=== PATIENT | female | born 1955 | race Asian ===

== ENCOUNTER 2017-02-09 08:45 | Outpatient (CLI) | payer OTHER | END 2017-02-10 00:39 | disposition home or self-care (01) | LOC: INF 08:45 | DX: L02.412 Cutaneous abscess of left axilla (principal) | CPT/HCPCS: 96365; 96366; J0712 ==

== ENCOUNTER 2017-02-10 11:09 | Outpatient (CLI) | payer OTHER ==
[~2017-02-10] VITALS: Ht 30.5 cm; Wt 0.5 kg
== END 2017-02-10 18:59 | disposition home or self-care (01) ==
LOC: INF 11:09
DX: L02.412 Cutaneous abscess of left axilla (principal)
CPT/HCPCS: 96365; 96366; J0712

== ENCOUNTER 2017-02-13 09:22 | Outpatient (CLI) | payer OTHER ==
[~2017-02-13] VITALS: Ht 167.6 cm; Wt 113.4 kg
[2017-02-13 09:35] VITALS: BP 144/98; TEMP 98.4
[2017-02-13 11:18] VITALS: BP 147/91; TEMP 98.4
== END 2017-02-13 19:11 | disposition home or self-care (01) ==
LOC: INF 09:22
DX: L02.412 Cutaneous abscess of left axilla (principal)
CPT/HCPCS: 96365; 96366; J0712

== ENCOUNTER 2017-02-14 09:52 | Outpatient (CLI) | payer OTHER ==
[~2017-02-14] VITALS: Ht 30.5 cm; Wt 0.5 kg
[2017-02-14 09:55] VITALS: BP 122/69; TEMP 98.5
[2017-02-14 11:35] VITALS: BP 145/83; TEMP 98.5
== END 2017-02-14 22:30 | disposition home or self-care (01) ==
LOC: INF 09:52
DX: L02.412 Cutaneous abscess of left axilla (principal)
CPT/HCPCS: 96365; 96366; J0712

== ENCOUNTER 2017-02-15 09:20 | Outpatient (CLI) | payer OTHER ==
[2017-02-15 09:40] VITALS: BP 121/67; TEMP 98.4
== END 2017-02-15 19:45 | disposition home or self-care (01) ==
LOC: INF 09:20
DX: L02.412 Cutaneous abscess of left axilla (principal)
CPT/HCPCS: 96365; 96366; J0712

== ENCOUNTER 2017-02-16 10:44 | Outpatient (CLI) | payer OTHER | END 2017-02-16 22:42 | disposition home or self-care (01) | LOC: INF 10:44 | DX: L02.412 Cutaneous abscess of left axilla (principal) | CPT/HCPCS: 96365; J0712 ==

== ENCOUNTER 2017-07-23 07:41 | Emergency (ER) | payer OTHER ==
[~2017-07-23] VITALS: Ht 167.6 cm; Wt 115.2 kg
[2017-07-23 08:11] VITALS: BP 145/89; TEMP 98
== END 2017-07-23 08:15 | disposition home or self-care (01) ==
LOC: ED 07:41
DX: M54.9 Dorsalgia, unspecified (principal); I10 Essential (primary) hypertension
CPT/HCPCS: 99281

== ENCOUNTER 2017-08-07 01:01 | Emergency (ER) | payer OTHER ==
[~2017-08-07] VITALS: Ht 167.6 cm; Wt 115.2 kg
[2017-08-07 01:39] LABS: PLATELET COUNT 161 K/uL (152-353)
[2017-08-07 02:00] LABS: PARTIAL THROMBOPLASTIN TIME 23.2 SECONDS (24.5-33.6)
[2017-08-07 02:16] LABS: POTASSIUM 3.8 mmol/L (3.6-5.2)
[2017-08-07 03:19] VITALS: BP 135/87; TEMP 98.7
== END 2017-08-07 03:27 | disposition home or self-care (01) ==
LOC: ED 01:01
DX: K29.00 Acute gastritis without bleeding (principal); B96.81 Helicobacter pylori [H. pylori] as the cause of diseases classified elsewhere; R07.89 Other chest pain; R00.0 Tachycardia, unspecified
CPT/HCPCS: 36415; 80053; 82550; 84484; 85027; 85610; 85730; 86318; 93005; 96360; 96361; 99284

== ENCOUNTER 2017-09-04 21:27 | Observation (INO) | payer OTHER ==
[~2017-09-04] VITALS: Ht 167.6 cm; Wt 117.2 kg
[2017-09-04 21:54] VITALS: BP 141/91; TEMP 103
[2017-09-04 22:37] LABS: PLATELET COUNT 167 K/uL (152-353)
[2017-09-04 22:43] LABS: POTASSIUM 4.1 mmol/L (3.6-5.2)
[2017-09-04 23:02] LABS: PARTIAL THROMBOPLASTIN TIME 22.1 SECONDS (24.5-33.6)
[2017-09-05 00:53] VITALS: BP 115/63; TEMP 98.4; Ht 167.6 cm; Wt 117.2 kg
[2017-09-05 04:00] VITALS: BP 122/71; TEMP 100.4
[2017-09-05 05:24] LABS: POTASSIUM 4.3 mmol/L (3.6-5.2)
[2017-09-05 05:31] LABS: PLATELET COUNT 147 K/uL (152-353)
[2017-09-05 08:00] VITALS: BP 140/82; TEMP 103
[2017-09-05 12:00] VITALS: BP 110/78; TEMP 98.8
== END 2017-09-05 15:40 | disposition home or self-care (01) ==
LOC: ED 21:27 → MED/SURG 23:35
PROVIDERS: Family Medicine; ADMIT Emergency Medicine
DX: J02.0 Streptococcal pharyngitis (principal); F71 Moderate intellectual disabilities; R11.2 Nausea with vomiting, unspecified; R50.9 Fever, unspecified; I10 Essential (primary) hypertension; I25.2 Old myocardial infarction; J44.9 Chronic obstructive pulmonary disease, unspecified; R00.0 Tachycardia, unspecified
CPT/HCPCS: 36415; 80053; 83605; 84484; 85027; 85610; 85730; 87040; 87804; 87880; 93005; 96360; 96365; 96366; 96367; 96374; 96375; 99220; 99284; G0378; J0456; J0696; J1650; J1885; J2270; J2405; J3490

== ENCOUNTER 2017-09-06 00:15 | Emergency (ER) | payer OTHER ==
[~2017-09-06] VITALS: Ht 167.6 cm; Wt 115.7 kg
[2017-09-06 01:10] LABS: PLATELET COUNT 140 K/uL (152-353)
[2017-09-06 01:20] LABS: POTASSIUM 3.7 mmol/L (3.6-5.2)
[2017-09-06 03:59] VITALS: BP 136/83; TEMP 101.1
== END 2017-09-06 04:02 | disposition short-term general hospital (02) ==
LOC: ED 00:15
DX: R07.89 Other chest pain (principal); R68.89 Other general symptoms and signs; I20.0 Unstable angina; R00.0 Tachycardia, unspecified
CPT/HCPCS: 80053; 82550; 84484; 85027; 93005; 96365; 96375; 99284; J3490

== ENCOUNTER 2018-11-12 21:05 | Observation (INO) | payer OTHER ==
[~2018-11-12] VITALS: Ht 167.6 cm; Wt 106.4 kg
[2018-11-12 21:35] VITALS: BP 145/89; TEMP 100
[2018-11-12 21:54] LABS: PLATELET COUNT 140 K/uL (152-353)
[2018-11-12 22:13] LABS: SODIUM 138 mmol/L (136-145)
[2018-11-13] VITALS (7 sets, daily range): BP systolic 117–163; BP diastolic 74–99; TEMP 98.6–100.6; Ht 167.6 cm; Wt 106.4 kg
[2018-11-14] VITALS: BP 142/90; TEMP 98.2
[2018-11-14 04:05] VITALS: BP 134/83; TEMP 98.8
[2018-11-14 08:23] VITALS: BP 151/79; TEMP 98.2
[2018-11-14] MEDS ORDERED: CARV6.25 PO (09:54)
[2018-11-14] MEDS ORDERED: LIPITOR40 MG PO (09:54)
[2018-11-14] MEDS ORDERED: SPIRONOLACT25 MG PO (09:55)
[2018-11-14] MEDS ORDERED: LISI10TA11 PO (09:55)
[2018-11-14 12:24] VITALS: BP 151/96; TEMP 98
[2018-11-14 15:26] LABS: PLATELET COUNT 122 K/uL (152-353)
[2018-11-14 15:36] LABS: POTASSIUM 3.7 mmol/L (3.6-5.2)
[2018-11-14 16:05] VITALS: BP 137/86; TEMP 98.8
== END 2018-11-14 17:50 | disposition short-term general hospital (02) ==
LOC: ED 21:05 → MED/SURG 23:20
PROVIDERS: Family Medicine; ADMIT Emergency Medicine
DX: I63.412 Cerebral infarction due to embolism of left middle cerebral artery (principal); R41.82 Altered mental status, unspecified; R42 Dizziness and giddiness; J44.9 Chronic obstructive pulmonary disease, unspecified; I10 Essential (primary) hypertension; I25.2 Old myocardial infarction; G62.89 Other specified polyneuropathies; E78.49 Other hyperlipidemia
CPT/HCPCS: 36415; 80053; 80307; 80320; 81000; 82550; 82553; 84484; 85027; 93005; 96365; 96366; 96372; 99220; 99284; G0378; J0696; J1650; J2060

== ENCOUNTER 2018-11-14 17:54 | Outpatient (CLI) | payer OTHER ==
[~2018-11-14 17:54] MED LIST: CARV6.25 PO; LIPITOR40 MG PO; LISI10TA11 PO; SPIRONOLACT25 MG PO
== END 2018-11-14 19:53 | disposition short-term general hospital (02) ==
LOC: AMB 17:54
DX: I63.412 Cerebral infarction due to embolism of left middle cerebral artery (principal); R41.82 Altered mental status, unspecified; R42 Dizziness and giddiness; J44.9 Chronic obstructive pulmonary disease, unspecified; I10 Essential (primary) hypertension; I25.2 Old myocardial infarction; G62.89 Other specified polyneuropathies; E78.49 Other hyperlipidemia
CPT/HCPCS: A0425; A0427

== ENCOUNTER 2019-06-29 09:14 | Inpatient (IN) | payer OTHER ==
[2019-06-29] VITALS (7 sets, daily range): BP systolic 127–219; BP diastolic 79–128; TEMP 97.7–98.7; Ht 167.6 cm; Wt 117.1 kg
[~2019-06-29] VITALS: Ht 167.6 cm; Wt 117.1 kg
[~2019-06-29 09:14] MED LIST changes: +NITR0.4D6 TD
[2019-06-29] MEDS ORDERED: ELIQUIS5 MG PO (09:40)
[2019-06-29] MEDS ORDERED: SPIRONOLACT25 MG PO (09:42)
[2019-06-29] MEDS ORDERED: ENTRESTO 24-261 TAB PO (09:44)
[2019-06-29 09:50] LABS: PLATELET COUNT 163 K/uL (152-353)
[2019-06-29 09:57] LABS: POTASSIUM 4.2 mmol/L (3.6-5.2); SODIUM 140 mmol/L (136-145)
[2019-06-30] VITALS (23 sets, daily range): BP systolic 127–165; BP diastolic 54–106; TEMP 97.6–99.3
[2019-06-30 05:13] LABS: PLATELET COUNT 152 K/uL (152-353)
[2019-06-30 05:29] LABS: POTASSIUM 3.8 mmol/L (3.6-5.2)
[2019-06-30 20:37] LABS: PLATELET COUNT 144 K/uL (152-353)
[2019-06-30 20:53] LABS: PARTIAL THROMBOPLASTIN TIME 23.7 SECONDS (24.5-33.6)
[2019-07-01] VITALS (37 sets, daily range): BP systolic 98–154; BP diastolic 53–94; TEMP 97.6–99.3
[2019-07-02] VITALS: BP 123/81; TEMP 98.3
[2019-07-02 04:00] VITALS: BP 148/58; TEMP 98.4
[2019-07-02 08:00] VITALS: BP 140/79; TEMP 98.2
[2019-07-02 12:00] VITALS: BP 152/91; TEMP 97.9
== END 2019-07-02 16:07 | disposition home or self-care (01) | DRG 291 ==
LOC: ED 09:14 → MED/SURG 10:40 → ICU 06-30 19:15 → MED/SURG 06-30 19:15 → ICU 06-30 19:15 → MED/SURG 07-01 15:02
PROVIDERS: Internal Medicine; ADMIT Student in an Organized Health Care Education/Training Program
DX: I50.43 Acute on chronic combined systolic (congestive) and diastolic (congestive) heart failure (principal); J18.8 Other pneumonia, unspecified organism; I42.8 Other cardiomyopathies; R07.89 Other chest pain; I25.10 Atherosclerotic heart disease of native coronary artery without angina pectoris; I25.2 Old myocardial infarction; Z91.14 Patient's other noncompliance with medication regimen; Z91.19 Patient's noncompliance with other medical treatment and regimen; M25.512 Pain in left shoulder; I11.0 Hypertensive heart disease with heart failure
CPT/HCPCS: 36415; 80048; 82550; 82948; 83735; 83880; 84484; 85027; 85379; 85610; 85730; 87040; 87077; 87185; 87205; 93005; 93306; 94640; 94664; 94760; 96365; 96366; 96372; 96374; 96375; 99284; J0456; J0696; J1644; J1650; J1940; J1956; J2270

== ENCOUNTER 2019-07-08 07:42 | Emergency (ER) | payer OTHER ==
[~2019-07-08] VITALS: Ht 167.6 cm; Wt 109.8 kg
[~2019-07-08 07:42] MED LIST changes: +ELIQUIS5 MG PO; +ENTRESTO 24-261 TAB PO
[2019-07-08 07:47] VITALS: TEMP 97.7
[2019-07-08 08:52] VITALS: BP 170/91
== END 2019-07-08 08:52 | disposition home or self-care (01) ==
LOC: ED 07:42
DX: M75.102 Unspecified rotator cuff tear or rupture of left shoulder, not specified as traumatic (principal)
CPT/HCPCS: 96372; 99283; J1885

== ENCOUNTER 2019-07-11 23:07 | Outpatient (CLI) | payer OTHER ==
[2019-07-12] MEDS ORDERED: LIPITOR40 MG PO (01:51)
[2019-07-12] MEDS ORDERED: LISI10TA11 PO (01:54)
== END 2019-07-11 23:09 | disposition short-term general hospital (02) ==
LOC: AMB 23:07
DX: M25.512 Pain in left shoulder (principal); R06.02 Shortness of breath
CPT/HCPCS: A0425; A0427

== ENCOUNTER 2019-07-11 23:17 | Inpatient (IN) | payer OTHER ==
[~2019-07-11] VITALS: Ht 167.6 cm; Wt 118.6 kg
[2019-07-11 23:21] VITALS: BP 171/98; TEMP 97.5
[2019-07-11 23:40] VITALS: BP 166/107
[2019-07-11 23:47] LABS: PLATELET COUNT 116 K/uL (152-353)
[2019-07-12] VITALS (7 sets, daily range): BP systolic 117–147; BP diastolic 4–86; TEMP 97.6–98.4; Ht 167.6 cm; Wt 118.6 kg
[2019-07-12 00:04] LABS: SODIUM 137 mmol/L (136-145)
[2019-07-12 00:07] LABS: PARTIAL THROMBOPLASTIN TIME 23.9 SECONDS (24.5-33.6)
[2019-07-12] MEDS ORDERED: LIPITOR40 MG PO (01:51)
[2019-07-12] MEDS ORDERED: LISI10TA11 PO (01:54)
[2019-07-13] VITALS (7 sets, daily range): BP systolic 152–180; BP diastolic 85–103; TEMP 97.9–98.7
[2019-07-14 04:00] VITALS: BP 127/66; TEMP 98.4
[2019-07-14 08:00] VITALS: BP 133/83; TEMP 98.3
[2019-07-14 08:08] LABS: PLATELET COUNT 153 K/uL (152-353)
[2019-07-14 08:18] LABS: POTASSIUM 3.9 mmol/L (3.6-5.2)
[2019-07-14 12:00] VITALS: BP 134/78; TEMP 97.8
[2019-07-14 16:00] VITALS: BP 144/88; TEMP 98.4
[2019-07-14] MEDS ORDERED: GLIP10TA55 PO (18:59)
[2019-07-14 20:00] VITALS: BP 158/78; TEMP 98.7
== END 2019-07-14 20:20 | disposition home or self-care (01) | DRG 293 ==
LOC: ED 23:17 → MED/SURG 07-12 00:25
PROVIDERS: Emergency Medicine; ADMIT Family Medicine
DX: I11.0 Hypertensive heart disease with heart failure (principal); I50.43 Acute on chronic combined systolic (congestive) and diastolic (congestive) heart failure; I25.10 Atherosclerotic heart disease of native coronary artery without angina pectoris; I25.2 Old myocardial infarction; J44.9 Chronic obstructive pulmonary disease, unspecified; E11.42 Type 2 diabetes mellitus with diabetic polyneuropathy
CPT/HCPCS: 36415; 80053; 82550; 83036; 83690; 83735; 83880; 84100; 84484; 85027; 85610; 85730; 93005; 94760; 96374; 99284; J1815; J1940

== ENCOUNTER 2019-07-18 22:56 | Emergency (ER) | payer OTHER ==
[~2019-07-18] VITALS: Ht 167.6 cm; Wt 118.4 kg
[~2019-07-18 22:56] MED LIST changes: +GLIP10TA55 PO
[2019-07-19 01:22] VITALS: BP 181/105; TEMP 97.5
== END 2019-07-19 01:24 | disposition home or self-care (01) ==
LOC: ED 22:56
DX: M25.512 Pain in left shoulder (principal)
CPT/HCPCS: 36415; 82550; 82553; 84484; 93005; 96372; 99283; J1885

== ENCOUNTER 2019-07-19 23:41 | Emergency (ER) | payer OTHER ==
[~2019-07-19] VITALS: Ht 167.6 cm; Wt 109.8 kg
[2019-07-20 00:42] LABS: PLATELET COUNT 162 K/uL (152-353)
[2019-07-20 01:10] LABS: POTASSIUM 3.8 mmol/L (3.6-5.2); SODIUM 139 mmol/L (136-145)
[2019-07-20 06:30] VITALS: TEMP 97.4
[2019-07-20 07:40] VITALS: BP 167/98
== END 2019-07-20 07:40 | disposition short-term general hospital (02) ==
LOC: ED 23:41
PROVIDERS: Hospitalist
DX: R07.89 Other chest pain (principal); I50.9 Heart failure, unspecified; I10 Essential (primary) hypertension; R00.0 Tachycardia, unspecified
CPT/HCPCS: 80053; 81000; 82150; 82550; 83690; 83880; 84484; 85027; 85610; 85730; 93005; 96372; 96374; 96375; 99284; J1650; J1940; J2270; J2405; J3490

== ENCOUNTER 2019-11-10 22:32 | Emergency (ER) | payer OTHER ==
[~2019-11-10] VITALS: Ht 167.6 cm; Wt 109.8 kg
[2019-11-10] MEDS ORDERED: ASPIRIN 81 LOW81 MG PO (22:50)
[2019-11-10] MEDS ORDERED: ENTRESTO 49-511 TAB PO (22:50)
[2019-11-10] MEDS ORDERED: CARV6.25 PO (22:50)
[2019-11-10 23:25] LABS: PLATELET COUNT 148 K/uL (152-353)
[2019-11-11 00:27] LABS: POTASSIUM 4.1 mmol/L (3.6-5.2); SODIUM 137 mmol/L (136-145)
[2019-11-11 01:45] VITALS: BP 176/91; TEMP 97.7
== END 2019-11-11 01:45 | disposition home or self-care (01) ==
LOC: ED 22:32
PROVIDERS: Emergency Medicine
DX: E86.0 Dehydration (principal); J18.8 Other pneumonia, unspecified organism; E11.65 Type 2 diabetes mellitus with hyperglycemia
CPT/HCPCS: 36415; 80053; 82550; 83735; 83880; 84484; 85027; 93005; 96372; 99283; J0696; J1815

== ENCOUNTER 2019-12-01 02:32 | Outpatient (CLI) | payer OTHER ==
[~2019-12-01 02:32] MED LIST changes: +ASPIRIN 81 LOW81 MG PO; +ENTRESTO 49-511 TAB PO
== END 2019-12-01 02:34 | disposition short-term general hospital (02) ==
LOC: AMB 02:32
DX: R07.89 Other chest pain (principal); R06.02 Shortness of breath
CPT/HCPCS: A0425; A0427

== ENCOUNTER 2019-12-01 02:35 | Emergency (ER) | payer OTHER ==
[~2019-12-01] VITALS: Ht 167.6 cm; Wt 120.2 kg
[2019-12-01 03:19] LABS: PLATELET COUNT 136 K/uL (152-353)
[2019-12-01 03:41] LABS: POTASSIUM 3.9 mmol/L (3.6-5.2)
[2019-12-01 08:50] LABS: PARTIAL THROMBOPLASTIN TIME 22.3 SECONDS (24.5-33.6)
[2019-12-01 10:30] VITALS: TEMP 98
[2019-12-01 15:56] VITALS: BP 152/90
== END 2019-12-01 16:19 | disposition short-term general hospital (02) ==
LOC: ED 02:35
PROVIDERS: Emergency Medicine
DX: R07.89 Other chest pain (principal); R79.89 Other specified abnormal findings of blood chemistry
CPT/HCPCS: 36415; 80053; 82550; 83605; 83880; 84484; 85027; 85610; 85730; 87040; 93005; 96365; 96372; 96375; 99284; J0696; J1650; J1885

== ENCOUNTER 2019-12-01 16:28 | Outpatient (CLI) | payer OTHER | END 2019-12-01 18:14 | disposition short-term general hospital (02) | LOC: AMB 16:28 | DX: R07.89 Other chest pain (principal); M25.512 Pain in left shoulder; R79.89 Other specified abnormal findings of blood chemistry | CPT/HCPCS: A0425; A0427 ==

== ENCOUNTER 2019-12-23 10:00 | Outpatient (CLI) | payer OTHER | END 2019-12-23 22:28 | disposition home or self-care (01) | LOC: MAMMO 10:00 | DX: Z12.31 Encounter for screening mammogram for malignant neoplasm of breast (principal) ==

== ENCOUNTER 2020-03-02 00:33 | Emergency (ER) | payer OTHER ==
[~2020-03-02] VITALS: Ht 167.6 cm; Wt 120.2 kg
[2020-03-02 01:41] LABS: PLATELET COUNT 130 K/uL (152-353)
[2020-03-02 02:57] LABS: POTASSIUM 4.4 mmol/L (3.6-5.2)
[2020-03-02 06:04] VITALS: BP 143/80; TEMP 98.8
== END 2020-03-02 07:40 | disposition short-term general hospital (02) ==
LOC: ED 00:33
PROVIDERS: Family Medicine
DX: J18.9 Pneumonia, unspecified organism (principal); I50.9 Heart failure, unspecified
CPT/HCPCS: 36415; 80053; 82550; 82553; 82947; 84484; 85027; 85610; 87635; 93005; 96372; 99284; G2023; J1815; U0002

== ENCOUNTER 2020-09-07 17:55 | Emergency (ER) | payer OTHER ==
[~2020-09-07] VITALS: Ht 167.6 cm; Wt 120.2 kg
[2020-09-07 20:04] LABS: PLATELET COUNT 109 K/uL (152-353)
[2020-09-07 20:18] LABS: POTASSIUM 4.5 mmol/L (3.6-5.2)
[2020-09-07 21:27] LABS: PARTIAL THROMBOPLASTIN TIME 24.1 SECONDS (24.5-33.6)
[2020-09-07 22:53] VITALS: BP 130/82; TEMP 99.8
== END 2020-09-07 22:53 | disposition short-term general hospital (02) ==
LOC: ED 17:55
PROVIDERS: Family Medicine
DX: I21.4 Non-ST elevation (NSTEMI) myocardial infarction (principal); I50.9 Heart failure, unspecified; R42 Dizziness and giddiness
CPT/HCPCS: 36415; 80053; 82150; 82550; 82553; 83605; 83690; 83880; 84484; 85027; 85379; 85610; 85730; 87040; 87077; 87186; 87205; 87502; 87635; 87651; 93005; 96360; 96365; 96375; 99285; J1644; Q9963; U0003

== ENCOUNTER 2021-09-11 17:10 | Emergency (ER) | payer OTHER ==
[~2021-09-11] VITALS: Ht 167.6 cm; Wt 120.2 kg
[2021-09-11 19:05] VITALS: BP 156/94; TEMP 98
== END 2021-09-11 19:05 | disposition home or self-care (01) ==
LOC: ED 17:10
DX: M75.52 Bursitis of left shoulder (principal); I16.0 Hypertensive urgency; F17.220 Nicotine dependence, chewing tobacco, uncomplicated
CPT/HCPCS: 93005; 96372; 99283; J1885; J2930

== ENCOUNTER 2021-11-04 23:43 | Emergency (ER) | payer OTHER ==
[~2021-11-04] VITALS: Ht 167.6 cm; Wt 111.1 kg
[2021-11-05 00:45] VITALS: BP 160/94; TEMP 98.4
== END 2021-11-05 00:45 | disposition home or self-care (01) ==
LOC: ED 23:43
DX: R05.8 Other specified cough (principal); H61.21 Impacted cerumen, right ear
CPT/HCPCS: 99282

== ENCOUNTER 2021-12-28 00:49 | Emergency (ER) | payer OTHER ==
[~2021-12-28] VITALS: Ht 167.6 cm; Wt 111.1 kg
[2021-12-28 01:18] LABS: PLATELET COUNT 128 K/uL (152-353)
[2021-12-28 07:01] VITALS: BP 160/92; TEMP 98
== END 2021-12-28 07:03 | disposition short-term general hospital (02) ==
LOC: ED 00:49
PROVIDERS: Emergency Medicine
DX: I24.9 Acute ischemic heart disease, unspecified (principal); I50.9 Heart failure, unspecified; Z11.52 Encounter for screening for COVID-19
CPT/HCPCS: 36415; 36416; 80053; 81000; 82550; 83880; 84484; 85027; 85610; 85730; 87635; 93005; 96365; 96366; 99284; J1644; J1940; J2270; J2405; U0003

== ENCOUNTER 2022-05-03 12:38 | Emergency (ER) | payer OTHER ==
[~2022-05-03] VITALS: Ht 167.6 cm; Wt 108.4 kg
[2022-05-03 12:38] VITALS: BP 164/88; TEMP 97.3
[2022-05-03] MEDS ORDERED: AZIT250T3 PO (14:56)
== END 2022-05-03 14:59 | disposition home or self-care (01) ==
LOC: ED 12:38
DX: H65.192 Other acute nonsuppurative otitis media, left ear (principal)
CPT/HCPCS: 99282

== ENCOUNTER 2022-12-20 13:11 | Emergency (ER) | payer OTHER ==
[~2022-12-20] VITALS: Ht 167.6 cm; Wt 112.5 kg
[~2022-12-20 13:11] MED LIST changes: +AZIT250T3 PO
[2022-12-20 13:14] VITALS: TEMP 97.6
[2022-12-20 14:20] LABS: PLATELET COUNT 136 K/uL (152-353)
[2022-12-20 14:27] LABS: POTASSIUM 4.2 mmol/L (3.6-5.2)
[2022-12-20 14:43] LABS: PARTIAL THROMBOPLASTIN TIME 25.1 SECONDS (24.5-33.6)
[2022-12-20 16:25] VITALS: BP 144/88
== END 2022-12-20 16:25 | disposition home or self-care (01) ==
LOC: ED 13:11
PROVIDERS: Emergency Medicine
DX: N39.0 Urinary tract infection, site not specified (principal); N18.9 Chronic kidney disease, unspecified
CPT/HCPCS: 80053; 81000; 83880; 84484; 85027; 85610; 85730; 87086; 87088; 93005; 96372; 99283; J0696

== ENCOUNTER 2023-03-24 18:15 | Emergency (ER) | payer OTHER ==
[~2023-03-24] VITALS: Ht 167.6 cm; Wt 145.2 kg
[2023-03-24 18:17] VITALS: TEMP 97.2
[2023-03-24 18:43] LABS: PLATELET COUNT 142 K/uL (152-353)
[2023-03-24 18:59] LABS: PARTIAL THROMBOPLASTIN TIME 26.7 SECONDS (23.9-36.7)
[2023-03-24 19:01] LABS: POTASSIUM 3.9 mmol/L (3.6-5.2)
[2023-03-24 20:30] VITALS: BP 139/69
== END 2023-03-24 20:30 | disposition short-term general hospital (02) ==
LOC: ED 18:15
PROVIDERS: Family Medicine
DX: I20.0 Unstable angina (principal); I16.0 Hypertensive urgency
CPT/HCPCS: 36415; 80053; 82150; 82550; 83690; 83880; 84484; 85027; 85610; 85730; 93005; 96374; 96375; 99284; J2405; J3490